=== PATIENT | male | born 1940 | race Caucasian/White ===

== ENCOUNTER → 2019-02-21 | Outpatient (CLI) | payer MEDICARE, OTHER ==
[~2019-02-21] MED LIST: ABAT250V; ASPI81CH PO; ASPI81EC PO; Cephalexin500 MG PO; Cinnamon500 MG PO; ELIQUIS2.5 MG PO; FARXIGA10 MG PO; Jantoven3 MG PO; LISI5 PO; Lisinopril2.5 MG; Norco 5-325 Ta1 EACH PO; PRAVASTATIN SOD10 MG PO; Pravachol40 MG; Prinivil10 MG; VIT1CAPS12 PO; WARF4 PO
== END | disposition home or self-care (01) ==
LOC: LAB SHORT 16:29 → LAB EV 16:29
DX: E11.9 Type 2 diabetes mellitus without complications (principal)
CPT/HCPCS: 82043

== ENCOUNTER 2019-10-18 19:12 | Observation (INO) | payer MEDICARE, OTHER ==
[~2019-10-18] VITALS: Ht 175.3 cm; Wt 65.0 kg
[~2019-10-18 19:12] MED LIST changes: +Lisinopril2.5 MG PO; +PRAV20 PO; -Pravachol40 MG; -Prinivil10 MG; +VIT1CAPS12; -VIT1CAPS12 PO
[2019-10-18 19:44] LABS: BASOPHILS ABSOLUTE AUTO 0.03 K/mm3 (0.00-0.23); BASOPHILS PERCENT AUTO 1 % (0-2); EOSINOPHILS ABSOLUTE AUTO 0.14 K/mm3 (0.00-0.68); EOSINOPHILS PERCENT AUTO 2 % (0-6); IMMATURE GRAN ABSOLUTE AUTO 0.02 K/mm3 (0.00-0.10); IMMATURE GRAN PERCENT AUTO 0 % (0-1); LYMPHOCYTES ABSOLUTE AUTO 1.95 K/mm3 (0.84-5.20); LYMPHOCYTES PERCENT AUTO 30 % (21-46); MONOCYTES ABSOLUTE AUTO 0.51 K/mm3 (0.16-1.47); MONOCYTES PERCENT AUTO 8 % (4-13); Mean Corpuscular HGB 31.3 pg (26.0-34.0); Mean Corpuscular HGB Conc 33.3 g/dL (31.5-36.5); Mean Corpuscular Volume 94 fL (80-100); Mean Platelet Volume 10.5 fL (9.1-12.4); NEUTROPHILS ABSOLUTE AUTO 3.76 K/mm3 (1.96-9.15); NEUTROPHILS PERCENT AUTO 59 % (41-73); Platelet Count 101 K/mm3 (150-400); RDW Coefficient Variation 12.3 % (11.7-14.2); RDW Standard Deviation 42.8 fL (35.1-46.3); White Blood Cell Count 6.41 K/mm3 (4.00-11.30)
[2019-10-18 19:59] LABS: International Normalized Ratio 0.97; Prothrombin Time Results 10.3 Sec (9.7-11.5)
[2019-10-18 20:05] LABS: Alanine Aminotransfer (ALT/SGP 27 U/L (12-78); Albumin, Blood 3.7 g/dL (3.4-5.0); Albumin/Globulin Ratio 1.1 (0.8-1.8); Alk Phos 81 U/L (50-136); Anion Gap 4 mmol/L (6-16); Aspartate Aminotrans (AST/SGOT 18 U/L (12-37); Bilirubin, Total 0.3 mg/dL (0.1-1.0); Blood Urea Nitrogen 17 mg/dL (8-24); Bun/Creatinine Ratio 18.5 (12.0-20.0); CO2, Blood 28 mmol/L (21-32); Calcium, Blood 8.8 mg/dL (8.5-10.1); Chloride, Blood 108 mmol/L (98-108); Creatinine, Blood 0.92 mg/dL (0.60-1.20); Globulin, Blood 3.5 g/dL (2.2-4.0); Glomerular Filtration Rate >60 (60-); Glucose, Blood 164 mg/dL (70-99); Potassium, Blood 3.6 mmol/L (3.5-5.5); Sodium, Blood 140 mmol/L (136-145); Total Protein, Blood 7.2 g/dL (6.4-8.2)
[2019-10-18 22:03] LABS: Source, Urine Clean Catch
[2019-10-18 22:06] LABS: Appearance, Urine Clear (Clear); Bilirubin, Urine Neg (Neg); Blood, Urine Neg (Neg); Color, Urine Yellow (P-Yellow); Glucose Qualitative, Urine 4+ (Neg); Ketones, Urine Neg (Neg); Leukocyte Esterase, Urine Neg (Neg); Nitrite, Urine Neg (Neg); Protein, Urine Neg (Neg); Urobilinogen, Urine NORM (Normal)
[2019-10-19] MEDS ORDERED: Coq-1030 MG PO (02:02)
--- NOTE | 2019-10-19 05:06 | NUR ---
SHIFT SUMMARY PT ER ADMIT THIS SHIFT FOR CVA. PT HAS RESTED MOST OF THE NIGHT SINCE ADMISSION TO THE UNIT. PT NEURO ASSESSMENT WNL WITH NO DEFICITS NOTED. PT A/OX4, 5/5 STRENGTH IN ALL FOUR EXT. PT HAS BEEN UP AND AMBULATING WITHOUT DIFFICULTY. PT BP IS STABLE. PT RECEIVED DOSE OF ADULT ASPIRIN AND HAS RESTED COMFORTABLY. TELE IN PLACE WITH NSR. OBS STATUS. BED IN LOWEST POSITION, CALL LIGHT WITHIN REACH. WILL CONTINUE TO MONITOR AND REPORT TO ONCOMING RN.
[2019-10-19 05:35] LABS: CHOL/HDL RATIO 2.7; Cholesterol 124 mg/dL (50-200); HDL Cholesterol 46 mg/dL (>39); LDL/HDL RATIO 1.4; Low Density Lipoprotein Chol 66 mg/dL (0-110); Triglycerides 59 mg/dL (30-160); Very Low Density Lipoprot Chol 11 mg/dL (6-32)
[2019-10-19] MEDS ORDERED: Aspir 8181 MG PO (16:33)
--- NOTE | 2019-10-19 16:36 | NUR ---
DISCHARGE SUMMARY ONLY NEW MED ASPIRIN WHICH THEY HAVE AT HOME, SO MEDS NOT FAXED ANYWHERE. PAPERWORK REVEIWED WITH PT AND . PCP STICKER PUT AT FRONT AND PT INFORMED THAT THEY WILL BE CALLED WITH APPT. ALL NEURO CHECKS NORMAL EXCEPT PT STILL SOMEWHAT APHASIC, THOUGH MUCH BETTER PER . PT LEAVING TO GO HOME WITH BY WC. MRI RESULTS NORMAL, ECHO DONE.
== END 2019-10-19 17:40 | disposition home or self-care (01) ==
LOC: ER 19:12 → MEDS 19:13 → ER 10-19 00:07 → MEDS 10-19 00:56
PROVIDERS: Emergency Medicine; Nurse Practitioner Acute Care; Physician Assistant; ADMIT Family Medicine
DX: I63.9 Cerebral infarction, unspecified (principal); I67.2 Cerebral atherosclerosis; I10 Essential (primary) hypertension; E78.5 Hyperlipidemia, unspecified; D68.52 Prothrombin gene mutation; E11.9 Type 2 diabetes mellitus without complications; H91.90 Unspecified hearing loss, unspecified ear; Z86.711 Personal history of pulmonary embolism; Z79.01 Long term (current) use of anticoagulants; Z79.899 Other long term (current) drug therapy; Z79.82 Long term (current) use of aspirin
CPT/HCPCS: 36415; 70450; 70496; 70498; 70551; 80053; 80061; 81003; 82947; 85025; 85610; 92523; 93005; 93010; 93306; 97161; 99285-25; G0378; Q9967

== ENCOUNTER → 2021-07-05 | Outpatient (CLI) | payer MEDICARE, OTHER ==
[~2021-07-05] MED LIST changes: +Aspir 8181 MG PO; +Coq-1030 MG PO
== END | disposition home or self-care (01) ==
LOC: LAB SHORT 14:45 → LAB 14:45
DX: N39.0 Urinary tract infection, site not specified (principal)
CPT/HCPCS: 87086

== ENCOUNTER → 2021-11-21 | Outpatient (CLI) | payer MEDICARE, OTHER | END | disposition home or self-care (01) | LOC: LAB 07:27 → LAB SHORT 07:27 | DX: D04.39 Carcinoma in situ of skin of other parts of face (principal) | CPT/HCPCS: 88305 ==

== ENCOUNTER → 2021-12-16 | Outpatient (CLI) | payer MEDICARE, OTHER | END | disposition home or self-care (01) | LOC: LAB SHORT 11:27 | DX: L72.9 Follicular cyst of the skin and subcutaneous tissue, unspecified (principal) | CPT/HCPCS: 88304 ==

== ENCOUNTER → 2022-12-09 | Outpatient (CLI) | payer MEDICARE, OTHER | LOC: LAB SHORT 08:06 → LAB 08:06 | DX: C44.311 Basal cell carcinoma of skin of nose (principal) | CPT/HCPCS: 88305 ==

== ENCOUNTER 2023-02-05 10:50 | Emergency (ER) | payer MEDICARE, OTHER ==
[~2023-02-05] VITALS: Ht 172.7 cm; Wt 62.6 kg
[2023-02-05 11:33] LABS: BASOPHILS ABSOLUTE AUTO 0.01 K/mm3 (0.00-0.23); BASOPHILS PERCENT AUTO 0 % (0-2); EOSINOPHILS PERCENT AUTO 0 % (0-6); Hematocrit 42.4 % (37.0-53.0); Hemoglobin 14.7 g/dL (13.5-17.5); IMMATURE GRAN ABSOLUTE AUTO 0.01 K/mm3 (0.00-0.10); IMMATURE GRAN PERCENT AUTO 0 % (0-1); LYMPHOCYTES ABSOLUTE AUTO 0.62 K/mm3 (0.84-5.20); LYMPHOCYTES PERCENT AUTO 14 % (21-46); MONOCYTES ABSOLUTE AUTO 0.59 K/mm3 (0.16-1.47); MONOCYTES PERCENT AUTO 13 % (4-13); Mean Corpuscular HGB 31.9 pg (26.0-34.0); Mean Corpuscular HGB Conc 34.7 g/dL (31.5-36.5); Mean Corpuscular Volume 92 fL (80-100); Mean Platelet Volume 10.9 fL (9.1-12.4); NEUTROPHILS ABSOLUTE AUTO 3.24 K/mm3 (1.96-9.15); NEUTROPHILS PERCENT AUTO 73 % (41-73); Platelet Count 68 K/mm3 (150-400); RDW Coefficient Variation 12.8 % (11.7-14.2); RDW Standard Deviation 43.6 fL (35.1-46.3); Red Blood Cell Count 4.61 M/mm3 (4.30-5.90); White Blood Cell Count 4.47 K/mm3 (4.00-11.30)
[2023-02-05 11:48] LABS: Source, Urine Clean Catch
[2023-02-05 11:49] LABS: Albumin, Blood 3.7 g/dL (3.4-5.0); Bilirubin, Total 0.7 mg/dL (0.1-1.0); Bun/Creatinine Ratio 28.9 (12.0-20.0); Calcium, Blood 8.9 mg/dL (8.5-10.1); Creatinine, Blood 0.97 mg/dL (0.60-1.20); Globulin, Blood 3.6 g/dL (2.2-4.0); Total Protein, Blood 7.3 g/dL (6.4-8.2)
[2023-02-05 11:58] LABS: Bilirubin, Urine Neg (Neg); Blood, Urine 1+ (Neg); Glucose Qualitative, Urine 4+ (Neg); Ketones, Urine 3+ (Neg); Leukocyte Esterase, Urine Neg (Neg); Nitrite, Urine Neg (Neg); Protein, Urine 1+ (Neg); Urobilinogen, Urine NORM (Normal)
[2023-02-05 12:06] LABS: Appearance, Urine Clear (Clear); Bacteria Not Seen /hpf; Color, Urine Yellow (P-Yellow); Red Blood Cells, Urine 0-2 /hpf (0-2); Squamous Epithelial Cells Few /hpf (Few); White Blood Cells, Urine Not Seen /hpf (0-5)
[2023-02-05 15:00] VITALS: BP 112/59
[2023-02-05 16:10] LABS: Influenza A, PCR NEGATIVE (NEGATIVE); Influenza B, PCR NEGATIVE (NEGATIVE); Resp Syncytial Virus, PCR NEGATIVE (NEGATIVE)
[2023-02-05 20:10] LABS: SARS-Cov-2 (COVID-19) PCR, MMC POSITIVE (NEGATIVE)
== END 2023-02-05 15:54 | disposition home or self-care (01) ==
LOC: ER 10:50
PROVIDERS: Emergency Medicine; Student in an Organized Health Care Education/Training Program
DX: E86.0 Dehydration (principal); D69.6 Thrombocytopenia, unspecified; R53.1 Weakness; Z79.899 Other long term (current) drug therapy; Z79.82 Long term (current) use of aspirin; E11.9 Type 2 diabetes mellitus without complications; I10 Essential (primary) hypertension; E78.5 Hyperlipidemia, unspecified
CPT/HCPCS: 0241U; 36415; 51798; 71046; 80053; 81001; 84484; 85025; 93005; 93010; 96360; 96361; 99284-25; J7030

== ENCOUNTER → 2023-09-01 | Outpatient (CLI) | payer MEDICARE, OTHER | LOC: LAB 13:40 → LAB SHORT 13:40 | DX: E11.69 Type 2 diabetes mellitus with other specified complication (principal) | CPT/HCPCS: 82043 ==

== ENCOUNTER 2025-04-17 22:37 | Emergency (ER) | payer MEDICARE, OTHER ==
[~2025-04-17] VITALS: Ht 172.7 cm; Wt 59.9 kg
[2025-04-18 00:38] LABS: BASOPHILS ABSOLUTE AUTO 0.02 K/mm3 (0.00-0.23); BASOPHILS PERCENT AUTO 0 % (0-2); EOSINOPHILS ABSOLUTE AUTO 0.09 K/mm3 (0.00-0.68); EOSINOPHILS PERCENT AUTO 1 % (0-6); Hematocrit 34.1 % (37.0-53.0); Hemoglobin 11.9 g/dL (13.5-17.5); IMMATURE GRAN ABSOLUTE AUTO 0.05 K/mm3 (0.00-0.10); IMMATURE GRAN PERCENT AUTO 1 % (0-1); LYMPHOCYTES ABSOLUTE AUTO 1.13 K/mm3 (0.84-5.20); LYMPHOCYTES PERCENT AUTO 13 % (21-46); MONOCYTES ABSOLUTE AUTO 0.72 K/mm3 (0.16-1.47); MONOCYTES PERCENT AUTO 8 % (4-13); Mean Corpuscular HGB Conc 34.9 g/dL (31.5-36.5); Mean Corpuscular Volume 94 fL (80-100); NEUTROPHILS ABSOLUTE AUTO 6.94 K/mm3 (1.96-9.15); NEUTROPHILS PERCENT AUTO 78 % (41-73); NRBC ABSOLUTE 0.00 K/mm3 (0.00-0.02); NRBC Auto 0.0 /100 WBC (0.0-0.2); Platelet Count 82 K/mm3 (150-400); RDW Coefficient Variation 12.3 % (11.7-14.2); RDW Standard Deviation 42.5 fL (35.1-46.3)
[2025-04-18 00:53] LABS: Alanine Aminotransfer (ALT/SGP 15.0 U/L (12-78); Albumin, Blood 3.3 g/dL (3.4-5.0); Albumin/Globulin Ratio 1.1 (0.8-1.8); Anion Gap 8.0 mmol/L (3-11); Aspartate Aminotrans (AST/SGOT 16.0 U/L (12-37); Bilirubin, Total 0.4 mg/dL (0.1-1.0); Blood Urea Nitrogen 32.0 mg/dL (8-24); CO2, Blood 27.0 mmol/L (21-32); Calcium, Blood 8.8 mg/dL (8.5-10.1); Chloride, Blood 110.0 mmol/L (98-108); Creatinine, Blood 1.07 mg/dL (0.60-1.20); Globulin, Blood 3.1 g/dL (2.2-4.0); Glucose, Blood 200.0 mg/dL (70-99); Potassium, Blood 3.7 mmol/L (3.5-5.5); Sodium, Blood 141.0 mmol/L (136-145); Total Protein, Blood 6.4 g/dL (6.4-8.2)
[2025-04-18 01:59] LABS: Source, Urine Clean Catch
[2025-04-18 02:00] VITALS: BP 145/86
[2025-04-18 02:01] LABS: Bilirubin, Urine Neg (Neg); Glucose Qualitative, Urine 4+ (Neg); Ketones, Urine Neg (Neg); Leukocyte Esterase, Urine Neg (Neg); Protein, Urine Neg (Neg); Specific Gravity, Urine 1.010 (1.003-1.022); Urobilinogen, Urine NORM (Normal)
[2025-04-18 02:03] LABS: Color, Urine Pale Yellow (P-Yellow)
[2025-04-18] MEDS ORDERED: PHENA200 PO (08:24)
== END 2025-04-18 02:44 | disposition home or self-care (01) ==
LOC: ER 22:37
PROVIDERS: Emergency Medicine
DX: R33.9 Retention of urine, unspecified (principal); E11.9 Type 2 diabetes mellitus without complications; I10 Essential (primary) hypertension; E78.5 Hyperlipidemia, unspecified; N21.0 Calculus in bladder; R31.9 Hematuria, unspecified; Z79.01 Long term (current) use of anticoagulants; Z79.82 Long term (current) use of aspirin; Z79.899 Other long term (current) drug therapy; Z96.0 Presence of urogenital implants
CPT/HCPCS: 51702; 51798; 74177; 80053; 81003; 83690; 85025; 99283-25; 99284-25; A9270; J7030; Q9967

== ENCOUNTER 2025-04-18 06:39 | Emergency (ER) | payer MEDICARE, OTHER ==
[~2025-04-18] VITALS: Ht 172.7 cm; Wt 59.9 kg
[2025-04-18] MEDS ORDERED: NS 1,000 ML IV SCH (07:05)
[2025-04-18] MEDS ORDERED: PHENA200 PO (08:24)
[2025-04-18 09:39] VITALS: BP 114/71
== END 2025-04-18 09:23 | disposition home or self-care (01) ==
LOC: ER 06:39
DX: N21.0 Calculus in bladder (principal); R31.9 Hematuria, unspecified; R33.9 Retention of urine, unspecified; I10 Essential (primary) hypertension; E78.5 Hyperlipidemia, unspecified; E11.9 Type 2 diabetes mellitus without complications; Z96.0 Presence of urogenital implants; Z86.73 Personal history of transient ischemic attack (TIA), and cerebral infarction without residual deficits; Z79.82 Long term (current) use of aspirin; Z79.899 Other long term (current) drug therapy
CPT/HCPCS: 74177; 99283-25; A9270; J7030; Q9967

== ENCOUNTER → 2025-05-12 | Outpatient (CLI) | payer MEDICARE, OTHER ==
[~2025-05-12] MED LIST changes: +PHENA200 PO
[2025-05-12 14:09] LABS: Source, Urine Foley catheter
[2025-05-12 14:25] LABS: White Blood Cells, Urine 25-50 /hpf (0-5)
== END ==
LOC: LAB SHORT 14:04 → LAB 14:04
PROVIDERS: Internal Medicine
DX: N39.0 Urinary tract infection, site not specified (principal); R31.9 Hematuria, unspecified
CPT/HCPCS: 81015; 87077; 87086; 87186

== ENCOUNTER 2025-05-13 06:45 | Emergency (ER) | payer MEDICARE, OTHER ==
[~2025-05-13] VITALS: Ht 172.7 cm; Wt 57.1 kg
[2025-05-13] MEDS ORDERED: Lidocaine 2% Jelly Uro-Jet UR ONE (09:25)
[2025-05-13 09:53] LABS: Source, Urine Clean Catch
[2025-05-13 09:58] LABS: Bilirubin, Urine Neg (Neg); Color, Urine Yellow (P-Yellow); Glucose Qualitative, Urine 4+ (Neg); Ketones, Urine Neg (Neg); Leukocyte Esterase, Urine 3+ (Neg); Protein, Urine 3+ (Neg); Specific Gravity, Urine 1.015 (1.003-1.022); Urobilinogen, Urine NORM (Normal)
[2025-05-13 10:12] LABS: White Blood Cells, Urine 25-50 /hpf (0-5)
[2025-05-13 11:12] VITALS: BP 122/71
== END 2025-05-13 11:22 | disposition home or self-care (01) ==
LOC: ER 06:45
PROVIDERS: Student in an Organized Health Care Education/Training Program
DX: T83.84XA Pain due to genitourinary prosthetic devices, implants and grafts, initial encounter (principal); N39.0 Urinary tract infection, site not specified; E11.9 Type 2 diabetes mellitus without complications; I10 Essential (primary) hypertension; E78.5 Hyperlipidemia, unspecified; Z86.73 Personal history of transient ischemic attack (TIA), and cerebral infarction without residual deficits; Z79.82 Long term (current) use of aspirin; Z79.899 Other long term (current) drug therapy
CPT/HCPCS: 51702; 81001; 87077; 87086; 87186; 99283

== ENCOUNTER → 2025-06-04 | Outpatient (CLI) | payer MEDICARE, OTHER | LOC: LAB SHORT 10:36 → LAB 10:36 | DX: N39.0 Urinary tract infection, site not specified (principal) | CPT/HCPCS: 87077; 87086; 87186 ==

== ENCOUNTER → 2025-06-18 | Outpatient (CLI) | payer MEDICARE, OTHER ==
[2025-06-18 16:46] LABS: Source, Urine Foley catheter
== END | disposition home or self-care (01) ==
LOC: LAB SHORT 16:45
PROVIDERS: Physician Assistant Medical
DX: R41.0 Disorientation, unspecified (principal); Z97.8 Presence of other specified devices
CPT/HCPCS: 81015

== ENCOUNTER 2025-06-23 10:09 | Day surgery (SDC) | payer MEDICARE, OTHER ==
[2025-06-23] VITALS (20 sets, daily range): BP systolic 108–162; BP diastolic 64–93
[~2025-06-23] VITALS: Ht 172.7 cm; Wt 57.2 kg
[~2025-06-23 10:09] MED LIST changes: +CARBIDOPA-LEVO1 EA15 PO; +CIPR500 PO; +CeFAZolin Sodium 2,000 MG in NS 100 ML IV SCH; +PIOG15 PO; +PRESERVISION A1 EAC6 PO; +Pyridium100 MG PO; +TAMS.4ER PO; +TRAM50 PO; -VIT1CAPS12; +[UNRECOGNIZED DRUG - OTHER] IO
[2025-06-23] MEDS ORDERED: AMOX-CLAV 875-1 EAC5 PO (10:34)
--- NOTE | 2025-06-23 10:57 | NUR ---
Pre-Op teaching done. Pt verbalizes understanding. History, Chart, Medications and Allergies reviewed before start of procedure. Patient confirms NPO status and agrees with scheduled surgery. Patient States Post-Procedure ride home has been arranged.
[2025-06-23] MEDS ORDERED: FentaNYL Citrate 50 MCG/ML 2 ML Injection ONE ×3 (11:22→13:44)
[2025-06-23] MEDS ORDERED: Ondansetron HCl 2 MG / ML 2ML Vial ONE (11:22)
[2025-06-23] MEDS ORDERED: Dexamethasone Sod Phos 10 MG/ML 1ML VIAL ONE (11:22)
[2025-06-23] MEDS ORDERED: Midazolam HCl 1MG / ML 2ML Vial ONE (11:30)
[2025-06-23] MEDS ORDERED: Phenylephrine HCl 100 MCG/ML-NS 10MLSYR (1MG/10ML) ONE (11:34)
[2025-06-23] MEDS ORDERED: HydrALAZINE HCl 20 MG / ML 1ML Vial IV PRN (13:05)
[2025-06-23] MEDS ORDERED: FentaNYL Citrate 50 MCG/ML 2 ML Injection IV PRN ×2 (13:05→13:10)
[2025-06-23] MEDS ORDERED: Ondansetron HCl 2 MG / ML 2ML Vial IV PRN (13:05)
[2025-06-23] MEDS ORDERED: ePHEDrine Sulfate 50 MG/ML 1ML Injection IV PRN (13:05)
[2025-06-23] MEDS ORDERED: HYDROmorphone HCl/Pf 1MG SYR IV PRN ×2 (13:05)
[2025-06-23] MEDS ORDERED: Albuterol 2.5 MG/3 ML VIAL INH PRN (13:05)
[2025-06-23] MEDS ORDERED: HYDROcodone 5-APAP 325 TAB PO PRN (13:25)
[2025-06-23] MEDS ORDERED: HYDROmorphone HCl/Pf 1MG SYR ONE (14:00)
--- NOTE | 2025-06-23 16:08 | NUR ---
PT REPORTING PAIN OF 8/10. NORCO 5/325 PO FOR PAIN GIVEN. PT ABLE TO TOLERATE PUDDING AND DIET PEPSI WELL. SPOUSE AT BEDSIDE DURING RECOVERY. PT EXPRESSED CONCERN ABOUT PAIN NOT BEING CONTROLLED WHEN HE GOES HOME AND WANTING PAIN TO BE 0/10 BEFORE LEAVING. PT EDUCATED ABOUT PAIN LEVELS AND SURGERY. UNDERSTANDING OF PAIN LEVEL. PT AGREEABLE TO GO HOME AFTER THE ORAL NORCO. ALL BELONGINGS INCLUDING HAT AND GLASSES GIVEN BACK TO PT. Discharge instructions reviewed with patient. Patient verbalizes understanding. Copy given to patient to take home. PT ABLE TO TRANSFER TO /C WITH 2 PERSON ASSIST AND TAKEN TO CAR FOR RIDE HOME WITH HIS . REPORTS GETTING HELP TO GET HIM IN THE HOUSE WHEN SHE GETS HOME.
[2025-06-28 10:33] LABS: CALCULI MASS 5878 mg
== END 2025-06-23 23:00 | disposition home or self-care (01) ==
LOC: ORSCMMR 10:09 → ORD 11:30 → ORSCMMR 23:00 → ORD 07-21 08:00 → ORSCSDS 07-21 08:00
PROVIDERS: Urology
PROC: 0TCB8ZZ Extirpation of Matter from Bladder, Via Natural or Artificial Opening Endoscopic (ICD-10-PCS; principal; 2025-06-23 11:30)
DX: N21.0 Calculus in bladder (principal); R31.0 Gross hematuria; R33.8 Other retention of urine; N40.1 Benign prostatic hyperplasia with lower urinary tract symptoms; E78.5 Hyperlipidemia, unspecified; E11.9 Type 2 diabetes mellitus without complications; G20.A1 Parkinson's disease without dyskinesia, without mention of fluctuations; Z86.718 Personal history of other venous thrombosis and embolism; Z86.73 Personal history of transient ischemic attack (TIA), and cerebral infarction without residual deficits; Z79.01 Long term (current) use of anticoagulants; Z79.899 Other long term (current) drug therapy
CPT/HCPCS: 82365; 82947; A4346; A9270; J0690; J1100; J1171; J2250; J2371; J2405; J2704; J3010; J7120

== ENCOUNTER → 2025-07-04 | Outpatient (CLI) | payer MEDICARE, OTHER ==
[~2025-07-04] MED LIST changes: +AMOX-CLAV 875-1 EAC5 PO; -CeFAZolin Sodium 2,000 MG in NS 100 ML IV SCH
== END ==
LOC: LAB SHORT 09:43 → LAB 09:43
DX: N39.0 Urinary tract infection, site not specified (principal)
CPT/HCPCS: 87086; 87106

== ENCOUNTER 2025-07-05 05:14 | Emergency (ER) | payer MEDICARE, OTHER ==
[~2025-07-05] VITALS: Ht 172.7 cm; Wt 57.1 kg
[2025-07-05 06:36] VITALS: BP 132/76
== END 2025-07-05 08:24 | disposition home or self-care (01) ==
LOC: ER 05:14
DX: T83.091A Other mechanical complication of indwelling urethral catheter, initial encounter (principal); E11.9 Type 2 diabetes mellitus without complications; I10 Essential (primary) hypertension; Z86.73 Personal history of transient ischemic attack (TIA), and cerebral infarction without residual deficits; Z79.899 Other long term (current) drug therapy
CPT/HCPCS: 51798

== ENCOUNTER 2025-07-21 10:01 | Day surgery (SDC) | payer MEDICARE, OTHER ==
[~2025-07-21] VITALS: Ht 172.7 cm; Wt 54.0 kg
[2025-07-21] VITALS (27 sets, daily range): BP systolic 126–173; BP diastolic 68–103
[~2025-07-21 10:01] MED LIST changes: +OXYB5 PO
[2025-07-21] MEDS ORDERED: CefOXitin Sodium 2,000 MG in NS 100 ML IV SCH (10:55)
[2025-07-21] MEDS ORDERED: Diflucan100 MG PO (11:07)
[2025-07-21] MEDS ORDERED: FentaNYL Citrate 50 MCG/ML 2 ML Injection ONE ×3 (11:20→14:35)
[2025-07-21] MEDS ORDERED: Ondansetron HCl 2 MG / ML 2ML Vial ONE (11:21)
[2025-07-21] MEDS ORDERED: Dexamethasone Sod Phos 10 MG/ML 1ML VIAL ONE (11:21)
--- NOTE | 2025-07-21 12:31 | NUR ---
Pt to Day Surgery via WC, accompanied by his . Pt able to stand on scale for accurate height/weight. History, Chart, Medications and Allergies reviewed before start of procedure. Patient confirms NPO status and agrees with scheduled surgery. Pre-Op teaching done. Pt verbalizes understanding. Patient States Post-Procedure ride home has been arranged. Pt belongings placed underneath rney for safekeeping. Pt glasses taken to PACU for safekeeping. Pt hearing aids x2 left in place per anesthesia, case provided to OR nurse for safekeeping.
[2025-07-21] MEDS ORDERED: Midazolam HCl 1MG / ML 2ML Vial ONE (12:33)
[2025-07-21] MEDS ORDERED: Phenylephrine HCl 100 MCG/ML-NS 10MLSYR (1MG/10ML) ONE (12:46)
[2025-07-21] MEDS ORDERED: HYDROmorphone HCl/Pf 1MG SYR IV PRN ×2 (13:50→14:05)
[2025-07-21] MEDS ORDERED: HYDROmorphone HCl/Pf 1MG SYR ONE ×2 (13:59→14:17)
[2025-07-21] MEDS ORDERED: FentaNYL Citrate 50 MCG/ML 2 ML Injection IV PRN ×2 (14:00→14:05)
[2025-07-21] MEDS ORDERED: Levodopa/Carbidopa 100 / 25 MG Tab PO SCH (14:00)
[2025-07-21] MEDS ORDERED: [UNRECOGNIZED DRUG - OTHER] XX SCH (14:05)
[2025-07-21] MEDS ORDERED: Albuterol 2.5 MG/3 ML VIAL INH PRN (14:05)
[2025-07-21] MEDS ORDERED: Ondansetron HCl 2 MG / ML 2ML Vial IV PRN (14:05)
[2025-07-21] MEDS ORDERED: ePHEDrine Sulfate 50 MG/ML 1ML Injection IV PRN (14:10)
[2025-07-21] MEDS ORDERED: HydrALAZINE HCl 20 MG / ML 1ML Vial IV PRN (14:15)
[2025-07-21] MEDS ORDERED: Labetalol HCL 5 MG/ML 4ML Injection (Single Dose) ONE (14:53)
[2025-07-21] MEDS ORDERED: Ketorolac Tromethamine 30mg Vial ONE (14:53)
--- NOTE | 2025-07-21 19:18 | NUR ---
LATE ENTRY: ERNA ARRIVED TO THE SURGICAL FLOOR AND WAS TRANSFERRED FROM DAY [facility] TO SURGICAL BED WITH A SLIDE SHEET AND 4 STAFF MEMBERS. HE IS VERY LETHARGIC, BUT OPENS EYES TO VERBAL STIMULI. HE KNOWS HIS NAME AND BIRTHDATE, BUT NOT THE PLACE OR SITUATION OR YEAR. HE IS ON 2LPM OXYGEN VIA NC (BASELINE IS ROOM AIR). HE FALLS ASLEEP QUICKLY AND MUMBLES HIS SPEECH. VIVIAN IS AT THE BEDSIDE. CONTIONUOUS BLADDER IRRIGATION IN PLACE, MASTERSON IN PLACE, DRAINING PINK URINE. NO CLOTS NOTED. THERE IS BLOOD TO THE PENIS AT CATHETER INSERTION SITE. PT IS ABLE TO TOLERATE EATING RED JELLO, BUT COUGHS WHEN HE SIPS WATER.
--- NOTE | 2025-07-21 19:42 | NUR ---
SHIFT SUMMARY: ERNA IS POD DAY ZERO S/P TURP BY DR. YUN. CONTINUOUS BLADDER IRRIGATION IN PLACE, DRAINING PINK URINE TO MASTERSON. A&O X2. FOLLOWS DIRECTIONS. PLEASANT. 2LPM OXYGEN VIA NASAL CANULA. SCD'S IN PLACE TO BILAT LOWER EXTREM. TOLERATED EATING JELLO. PMH: [facility]. AT 1930, DR. YUN ROUNDED AND DISCUSSED PT CASE WITH FAMILY AT BEDSIDE. RN GAVE REPORT TO NIGHT NURSE LEROY.
[2025-07-21] MEDS ORDERED: Beta-Carotene (A) W-C & E/Min 1 Tab PO SCH (21:00)
[2025-07-22 00:06] VITALS: BP 148/99
[2025-07-22 00:58] VITALS: BP 118/77
[2025-07-22 05:10] VITALS: BP 129/72
[2025-07-22 07:23] VITALS: BP 120/63
--- NOTE | 2025-07-22 07:41 | NUR ---
SHIFT SUMMARY NOC. PT POD 1 FOR TURP. CONTINUOUS BLADDER IRRIGATION RUNNING VIA MASTERSON PINK IN COLOR, NO CLOTS NOTED. PT DENIES PAIN THIS SHIFT. PT IS A/O X2-3, MORE CONFUSED PER PT VIVIAN. BED ALARM SET FOR CAROLYNE, AT BEDSIDE T/O NIGHT. CALL LIGHT IN REACH.
[2025-07-22] MEDS ORDERED: TRAM50 PO (07:45)
[2025-07-22] MEDS ORDERED: PHENA200 PO (07:47)
[2025-07-22] MEDS ORDERED: CIPR250 PO (07:48)
--- NOTE | 2025-07-22 12:10 | NUR ---
[id number] DISCHARGE INSTRUCTION WITH AND PATIENT INCLUDING FOELY CARE MEDICATIONS AND FOLLOW UP APPOINTMENTS. VERBALIZED UNDERSTANDING OF INSTRUCTONS. PATIENT DRESSED AND ALL BELONGINGS GATHERED. PATIENT LEFT VIA WC TO HOME. DENIED PAIN. CLAIRIFIED WITH THAT THERE WAS ADDITIONAL PHYSICAL ASSISTANCE AT HOME
== END 2025-07-22 11:36 | disposition home or self-care (01) ==
LOC: ORSCMMR 10:01 → ORD 10:30 → ORSCMMR 10:30 → ORSCSDS 10:30 → ORSCMMR 11:30 → ORD 11:30 → SURS 15:19 → ORSCMMR 07-22 11:36
PROVIDERS: Urology
PROC: 0VT08ZZ Resection of Prostate, Via Natural or Artificial Opening Endoscopic (ICD-10-PCS; principal; 2025-07-21 11:30)
DX: N40.1 Benign prostatic hyperplasia with lower urinary tract symptoms (principal); R33.8 Other retention of urine; E78.5 Hyperlipidemia, unspecified; E11.9 Type 2 diabetes mellitus without complications; G20.A1 Parkinson's disease without dyskinesia, without mention of fluctuations; Z86.718 Personal history of other venous thrombosis and embolism; Z79.01 Long term (current) use of anticoagulants; Z79.899 Other long term (current) drug therapy; Z86.73 Personal history of transient ischemic attack (TIA), and cerebral infarction without residual deficits
CPT/HCPCS: 82947; 88305; A4346; A9270; J0694; J1100; J1171; J1885; J2250; J2371; J2405; J2704; J3010; J7120

== ENCOUNTER → 2025-07-31 | Outpatient (CLI) | payer MEDICARE, OTHER ==
[~2025-07-31] MED LIST changes: +CIPR250 PO; +Diflucan100 MG PO
== END ==
LOC: LAB SHORT 12:31 → LAB 12:31
DX: R30.0 Dysuria (principal)
CPT/HCPCS: 87077; 87086; 87186

== ENCOUNTER → 2025-08-10 | Outpatient (CLI) | payer MEDICARE, OTHER | LOC: LAB 09:55 → LAB SHORT 09:55 | DX: R33.8 Other retention of urine (principal); N32.89 Other specified disorders of bladder | CPT/HCPCS: 87086; 87106 ==

== ENCOUNTER → 2025-08-23 | Outpatient (CLI) | payer MEDICARE, OTHER ==
[2025-08-23 18:05] LABS: Bilirubin, Urine Neg (Neg); Color, Urine Yellow (P-Yellow); Glucose Qualitative, Urine 4+ (Neg); Ketones, Urine Neg (Neg); Leukocyte Esterase, Urine 3+ (Neg); Protein, Urine 3+ (Neg); Specific Gravity, Urine 1.015 (1.003-1.022); Urobilinogen, Urine NORM (Normal)
[2025-08-23 18:27] LABS: White Blood Cells, Urine TNTC /hpf (0-5)
== END ==
LOC: LAB 16:44 → LAB SHORT 16:44
PROVIDERS: Urology
DX: R35.0 Frequency of micturition (principal)
CPT/HCPCS: 81001; 87077; 87086; 87186

== ENCOUNTER → 2025-09-15 | Outpatient (CLI) | payer MEDICARE, OTHER | END | disposition home or self-care (01) | LOC: LAB SHORT 11:38 → LAB 11:38 | DX: R30.0 Dysuria (principal) | CPT/HCPCS: 87077; 87086; 87186 ==